=== PATIENT | male | born 1995 | race Caucasian/White ===

== ENCOUNTER 2017-01-28 08:14 | Emergency (ER) | payer OTHER ==
[~2017-01-28] VITALS: Ht 167.6 cm; Wt 75.5 kg
[2017-01-28 08:15] VITALS: Ht 167.6 cm; Wt 75.5 kg
[2017-01-28] MEDS ORDERED: TETRACAINE 0.5% 4 ML OPH LEFT EYE ONE (09:00)
[2017-01-28] MEDS ORDERED: OPHTHALMIC IRRIG SOLUTION 120 ML LEFT EYE ONE (09:00)
[2017-01-28] MEDS ORDERED: FLUORESCEIN STRIP LEFT EYE ONE (09:00)
[2017-01-28] MEDS ORDERED: OFLO5DRO46 LEFT EYE (11:08)
--- NOTE | 2017-01-28 12:16 | ERD ---
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 States that the oil accidentally splattered onto the left side of his eye. States that he was not wearing protective glasses. Denies any itchiness or pain. Denies any blurred vision, diplopia, photophobia , headache, weakness, numbness or tingling. Denies wearing glasses or contacts. ROS All systems reviewed and are negative except as per history of present illness. Medications Home Meds Active Scripts Ofloxacin* (Ocuflox*) 0.3%-5 Ml Ophth Drops, 1 DROP LEFT EYE QID for 7 Days, BOTTLE Prov:IVANIA RICHTER PA-C 01/28/17 Allergies Allergies: Coded Allergies: No Known Allergy (Unverified , 01/28/17) PMhx/Soc Medical and Surgical Hx: pt denies Medical Hx, pt denies Surgical Hx Hx Alcohol Use: No Hx Substance Use: No Hx Tobacco Use: No Smoking Status: Never smoker Physical Exam Vitals Vital Signs Date Time Temp Pulse Resp B/P Pulse Ox O2 Delivery O2 Flow Rate FiO2 01/28/17 08:15 97.6 74 18 123/73 100 Physical Exam Const: [id number], well-nourished. In no acute distress. Head: Atraumatic, normocephalic Eyes: Left conjunctiva with injection and purulent discharge noted in inner and outer canthus. PERRLA. EOMI ENT: Normal external ear. Ear canal without erythema. Tympanic membrane pearly serrato without effusion or bulging. Nasal canal clear with normal turbinates. Moist oropharynx without tonsillar exudates. Non-erythematous pharynx. Uvula midline. No drooling. No trismus. Neck: No cervical midline tenderness. Full range of motion. No meningismus. No cervical lymphadenopathy. No JVD. Resp: Clear to auscultation bilaterally. No wheezing, rhonchi, rales, or crackles. No accessory muscle use. No retractions. Cardio: Regular rate and rhythm. No murmurs, rubs or gallops. Abd: Soft, non tender, non distended. Normal bowel sounds. No palpable masses. No rebound tenderness. No guarding. Negative McBurney's Point. Negative Wellington's Sign. Skin: Normal skin turgor. No petechiae or rashes Back: No midline tenderness. No CVA tenderness. Ext: No cyanosis, or edema. Distal pulses intact bilaterally. Neur: Awake and alert. Normal gait. Normal coordination. Cranial Nerves II- VII intact. Normal finger to nose. Muscle strength 5/5. Sensation intact. Psych: Normal Mood and Affect Results 24 hrs Current Medications Medications (Trade) Dose Ordered Sig/Thanh Route PRN Reason Start Time Stop Time Status Last Admin Dose Admin Irrigating Solution (Eye Wash) 1 applic ONCE ONCE LEFT EYE 01/28/17 09:00 01/28/17 09:01 DC Fluorescein Sodium (Vuwhe-U-Zoiop) 1 strip ONCE ONCE LEFT EYE 01/28/17 09:00 01/28/17 09:01 DC Tetracaine HCl (Tetracaine 0.5% Steri-Unit Marilee) 1 drop ONCE ONCE LEFT EYE 01/28/17 09:00 01/28/17 09:01 DC Procedures/MDM This is a 21-year-old male patient with no significant past medical history presents the ED complaining of a left eye injury. Patient is afebrile nontoxic appearing. Patient gave consent to do a wood's lamp at this time. Eye wash was ordered to wash patients left out with improvement of his symptoms. Eye Exam w/ Wood's lamp: Visual Acuity: [L 20/40 R 20/20 Bilateral 20/45] Visual Ontiveros: Intact in all four quadrants bilaterally Lac ducts/glands: No swelling Lids w/ evertion: Normal, no foreign body Conj/[place]: Clear, negative Fluorescein/Nesha's Anterior Chamber: Clear There is no fluorescein uptake at this time. No direct corneal injury noted. Patient had purulent discharge noted of the inner canthus and outer canthus of the left eye with injected conjunctiva. Patient could likely have conjunctivitis secondary to an irritant. Patient's ocular symptoms have stabilized while they have been evaluated in the department and are appropriate for outpatient work up. Low suspicion for ruptured globe, retinal detachment, periorbital cellulitis, acute angle closure glaucoma, deep space infection, iritis, traumatic hyphema, subconjunctival hemorrhage, corneal abrasion, corneal ulcer, pterygium, hypopyon, blepharitis, hordeolum, chalazion, or other emergent conditions. Discharge medications: Ocuflox Strictly instructed patient to follow up with an lead fabricator within 24 hours. Instructed patient to return to the ED for any worsening symptoms. Patient is hemodynamically stable. Patient's questions were answered. Patient understood and agreed with discharge plan. Departure Diagnosis: Primary Impression: Eye injury Encounter type: initial encounter Laterality: left Qualified Code: S05.92XA - Left eye injury, initial encounter Condition: Stable Patient Instructions: Conjunctivitis Caused by Irritation, Corneal Injury, Eye Protection at Work: First Aid Referrals: [facility] YOU HAVE RECEIVED A MEDICAL SCREENING EXAM AND THE RESULTS INDICATE THAT YOU DO NOT HAVE A CONDITION THAT REQUIRES URGENT TREATMENT IN THE EMERGENCY DEPARTMENT. FURTHER EVALUATION AND TREATMENT OF YOUR CONDITION CAN WAIT UNTIL YOU ARE SEEN IN YOUR DOCTORS OFFICE WITHIN THE NEXT 1-2 DAYS. IT IS YOUR RESPONSIBILITY TO MAKE AN APPOINTMENT FOR FOLOW-UP CARE. IF YOU HAVE A PRIMARY DOCTOR --you should call your primary doctor and schedule an appointment IF YOU DO NOT HAVE A PRIMARY DOCTOR YOU CAN CALL OUR PHYSICIAN REFERRAL HOTLINE AT IF YOU CAN NOT AFFORD TO SEE A PHYSICIAN YOU CAN CHOSE FROM THE FOLLOWING [facility] [address] [facility]. [facility] [address] [facility]. [facility] [address] [facility] [facility] [address] [facility] [facility] [address] [facility]. [facility]. [address] [facility]. [facility] YOU HAVE RECEIVED A MEDICAL SCREENING EXAM AND THE RESULTS INDICATE THAT YOU DO NOT HAVE A CONDITION THAT REQUIRES URGENT TREATMENT IN THE EMERGENCY DEPARTMENT. FURTHER EVALUATION AND TREATMENT OF YOUR CONDITION CAN WAIT UNTIL YOU ARE SEEN IN YOUR DOCTORS OFFICE WITHIN THE NEXT 1-2 DAYS. IT IS YOUR RESPONSIBILITY TO MAKE AN APPOINTMENT FOR FOLOW-UP CARE. IF YOU HAVE A PRIMARY DOCTOR --you should call your primary doctor and schedule and appointment IF YOU DO NOT HAVE A PRIMARY DOCTOR YOU CAN CALL OUR PHYSICIAN REFERRAL HOTLINE AT . IF YOU CAN NOT AFFORD TO SEE A PHYSICIAN YOU CAN CHOSE FROM THE FOLLOWING [facility] INSTITUTIONS: [facility] [address] [place] [address] [facility] [address] [place] [address] [facility] [address] [place] [address] [facility] Hours: Mon - Fri 9:00 AM - 5:00 PM Additional Instructions: Es importante hacer un seguimiento con un oftalmlogo dentro de las prximas 24 horas. Regrese a estas instalaciones si no se mejora stoney esperbamos o stoney le dijimos. IVANIA RICHTER PA-C January 28, 2017 12:16
== END 2017-01-28 11:17 | disposition home or self-care (01) ==
LOC: FTE 08:14
DX: S05.92XA Unspecified injury of left eye and orbit, initial encounter (principal); X10.2XXA Contact with fats and cooking oils, initial encounter; Y92.89 Other specified places as the place of occurrence of the external cause
CPT/HCPCS: 99283